=== PATIENT | male | born 1995 | race Caucasian/White ===

== ENCOUNTER 2018-06-23 15:37 | Emergency (ER) | payer BC ==
[2018-06-23] MEDS ORDERED: ALBUTEROL 2.5 MG/3 ML NEB SOL ONE (16:58)
[2018-06-23] MEDS ORDERED: IPRATROPIUM BROM 0.5MG/2.5ML ONE (16:58)
[2018-06-23] MEDS ORDERED: predniSONE 20 MG TAB ONE (16:58)
--- NOTE | 2018-06-23 17:15 | RAD REPORT ---
EXAM DESCRIPTION: RAD - Chest Pa And Lat (2 Views) - 06/23/2018 5:01 pm CLINICAL HISTORY: Cough;Congestion Chest pain. COMPARISON: Chest Pa And Lat (2 Views) dated 07/14/2017; Chest Pa And Lat (2 Views) dated 11/28/2016; C HEST PA AND LAT 2 VIEW dated 11/19/2015; CHEST SINGLE VIEW dated 04/25/2014 FINDINGS: The lungs are clear. The heart is normal in size. No displaced fractures. IMPRESSION: No acute or concerning finding suspected.
--- NOTE | 2018-06-23 18:20 | EDPHYS ---
Physician Documentation [facility] Name: Julius Barkley Age: 23 yrs Sex: Male : 1995 Arrival Date: 06/23/2018 Time: 15:40 Bed 15 Private MD: Vini Tomlinson E ED Physician Adam Fernandes HPI: 06/23 16:31 This 23 yrs old Male presents to ER via Ambulatory with complaints of Cough pm1 and Congestion. 16:31 The patient or guardian reports cough, with productive sputum, that is green. Onset: pm1 The symptoms/episode began/occurred 4 day(s) ago. Severity of symptoms: in the emergency department the symptoms are actually worse. Modifying factors: The symptoms are alleviated by nothing, the symptoms are aggravated by nothing. Associated signs and symptoms: Pertinent positives: earache, sore throat, Pertinent negatives: chest pain, diarrhea, fever, nausea, rhinorrhea, vomiting. The patient has experienced similar episodes in the past, a few times, and the symptoms today are exactly the same, to when the patient was apparently diagnosed with bronchitis. Usually gets it once every other year. The patient has not recently seen a physician. Historical: - Allergies: 15:54 Codeine; aj1 - Home Meds: 15:54 None [Active]; aj1 - PMHx: 15:54 ALOPECIA; dermatitis; GERD; aj1 - PSHx: 15:54 Appendectomy; aj1 - Immunization history:: Flu vaccine is not up to date. - Social history:: Smoking status: Patient uses tobacco products, a couple every weekend. - Ebola Screening: : Patient denies travel to an Ebola-affected area in the 21 days before illness onset. ROS: 16:31 Constitutional: Negative for fever, chills, and weight loss, Eyes: Negative for injury, pm1 pain, redness, and discharge, ENT: Negative for injury, pain, and discharge, Neck: Negative for injury, pain, and swelling, Cardiovascular: Negative for chest pain, palpitations, and edema, Abdomen/GI: Negative for abdominal pain, nausea, vomiting, diarrhea, and constipation, Back: Negative for injury and pain, : Negative for injury, bleeding, discharge, and swelling, MS/Extremity: Negative for injury and deformity, Skin: Negative for injury, rash, and discoloration. 16:31 Neuro: Negative for headache, weakness, numbness, tingling, and seizure. 16:31 Respiratory: Positive for cough, with green sputum, shortness of breath, Negative for wheezing. Exam: 16:31 Constitutional: This is a well developed, well nourished patient who is awake, alert, pm1 and in no acute distress. Head/Face: Normocephalic, atraumatic. Eyes: Pupils equal round and reactive to light, extra-ocular motions intact. Lids and lashes normal. Conjunctiva and sclera are non-icteric and not injected. Cornea within normal limits. Periorbital areas with no swelling, redness, or edema. ENT: Nares patent. No nasal discharge, no septal abnormalities noted. Tympanic membranes are normal and external auditory canals are clear. Oropharynx with no redness, swelling, or masses, exudates, or evidence of obstruction, uvula midline. Mucous membranes moist. Neck: Trachea midline, no thyromegaly or masses palpated, and no cervical lymphadenopathy. Supple, full range of motion without nuchal rigidity, or vertebral point tenderness. No Meningismus. Chest/axilla: Normal chest wall appearance and motion. Nontender with no deformity. No lesions are appreciated. Cardiovascular: Regular rate and rhythm with a normal S1 and S2. No gallops, murmurs, or rubs. Normal PMI, no JVD. No pulse deficits. Respiratory: Lungs have equal breath sounds bilaterally, clear to auscultation and percussion. No rales, rhonchi or wheezes noted. No increased work of breathing, no retractions or nasal flaring. Abdomen/GI: Soft, non-tender, with normal bowel sounds. No distension or tympany. No guarding or rebound. No evidence of tenderness throughout. Back: No spinal tenderness. No costovertebral tenderness. Full range of motion. Skin: Warm, dry with normal turgor. Normal color with no rashes, no lesions, and no evidence of cellulitis. MS/ Extremity: Pulses equal, no cyanosis. Neurovascular intact. Full, normal range of motion. 16:31 Neuro: Orientation: is normal, Motor: is normal, moves all fours, Sensation: is normal, no obvious gross deficits, Gait: is steady, at a normal pace, without difficulty. Vital Signs: 15:54 BP 129 / 88; Pulse 97; Resp 18; Temp 98.4; Pulse Ox 95% on R/A; Weight 99.79 kg (R); aj1 Height 5 ft. 10 in. (177.80 cm) (R); Pain 9/10; 18:22 BP 133 / 77; Pulse 108; Resp 17; Pulse Ox 100% on R/A; kr2 15:54 Body Mass Index 31.57 (99.79 kg, 177.80 cm) aj1 MDM: 16:21 Patient medically screened. pm1 16:35 Data reviewed: vital signs. Data interpreted: Pulse oximetry: on room air is 95 %. pm1 Interpretation: normal. 18:18 Counseling: I had a detailed discussion with the patient and/or guardian regarding: the pm1 historical points, exam findings, and any diagnostic results supporting the discharge/admit diagnosis, lab results, radiology results, the need for outpatient follow up, to return to the emergency department if symptoms worsen or persist or if there are any questions or concerns that arise at home. 06/23 16:29 Order name: Flu; Complete Time: 17:42 pm1 06/23 16:29 Order name: Strep; Complete Time: 18:17 pm1 06/23 16:29 Order name: Chest Pa And Lat (2 Views) XRAY; Complete Time: 17:30 pm1 06/23 17:43 Order name: Throat Culture EDMS Administered Medications: 17:18 Drug: predniSONE 60 mg Route: PO; kr2 18:29 Follow up: Response: No adverse reaction kr2 17:18 Drug: Albuterol - atroVENT (3:1) (2.5 mg - 0.5 mg) 3 ml Route: Nebulizer; kr2 18:29 Follow up: Response: No adverse reaction kr2 Disposition: 18:39 Co-signature as Attending Physician, Adam Fernandes MD. rn Disposition: 06/23/18 18:19 Discharged to Home. Impression: Bronchitis, not specified as acute or chronic. - Condition is Stable. - Discharge Instructions: Acute Bronchitis, Adult, How to Use an Inhaler, Cough, Adult. - Prescriptions for Tessalon Perles 100 mg Oral Capsule - take 1 capsule by ORAL route every 8 hours As needed; 15 capsule. Medrol (Klaus) 4 mg Oral Tablets, Dose Pack - take 1 tablet by ORAL route as directed - follow package instructions; 1 packet. Albuterol Sulfate 90 mcg/actuation - inhale 1-2 puff by INHALATION route every 4-6 hours; 1 Inhaler. - Medication Reconciliation Form, Thank You Letter, Antibiotic Education form. - Follow up: Emergency Department; When: As needed; Reason: Worsening of condition. Follow up: Vini Tomlinson MD; When: 2 - 3 days; Reason: Recheck today's complaints, Continuance of care, Re-evaluation by your physician. - Problem is new. - Symptoms have improved. Signatures: Dispatcher [employer] EDMS Kathya Britt RN RN aj1 Adam Fernandes MD MD rn Marinas, Patrick, NATIONAL ACCOUNT EXECUTIVE NATIONAL ACCOUNT EXECUTIVE pm1 Alia Napier RN RN kr2 Corrections: (The following items were deleted from the chart) 18:31 18:19 06/23/2018 18:19 Discharged to Home. Impression: Bronchitis, not specified as kr2 acute or chronic. Condition is Stable. Forms are Medication Reconciliation Form, Thank You Letter, Antibiotic Education, Prescription Opioid Use. Follow up: Emergency Department; When: As needed; Reason: Worsening of condition. Follow up: Vini Tomlinson; When: 2 - 3 days; Reason: Recheck today's complaints, Continuance of care, Re-evaluation by your physician. Problem is new. Symptoms have improved. pm1
--- NOTE | 2018-06-23 18:20 | ER ---
Nurse's Notes [facility] Name: Julius Barkley Age: 23 yrs Sex: Male : 1995 Arrival Date: 06/23/2018 Time: 15:40 Bed 15 Private MD: Vini Tomlinson E Diagnosis: Bronchitis, not specified as acute or chronic Presentation: 06/23 15:51 Presenting complaint: Patient states: Cough, congestion, shortness of breath, and light aj1 headedness for the past 4 days, but the shortness of breath got worse last night and has not improved over the course of the day. Denies fever. Transition of care: patient was not received from another setting of care. Onset of symptoms was June 19, 2018. Risk Assessment: Do you want to hurt yourself or someone else? Patient reports no desire to harm self or others. Initial Sepsis Screen: Does the patient meet any 2 criteria? Systolic BP < 90 mmHg. No. Patient's initial sepsis screen is negative. Does the patient have a suspected source of infection? No. Patient's initial sepsis screen is negative. Care prior to arrival: None. 15:51 Method Of Arrival: Ambulatory aj1 15:57 Acuity: JANIS 4 aj1 Triage Assessment: 15:54 General: Appears in no apparent distress. uncomfortable, Behavior is calm, cooperative, aj1 appropriate for age. Pain: Complains of pain in face Pain currently is 9 out of 10 on a pain scale. Aggravated by coughing. EENT: Reports nasal congestion nasal discharge. Neuro: Level of Consciousness is awake, alert, obeys commands. Cardiovascular: Patient's skin is warm and dry. Respiratory: Reports cough that is persistent Airway is patent Respiratory effort is even, unlabored, Respiratory pattern is regular, symmetrical. GI: Reports vomiting, Patient currently denies diarrhea. Historical: - Allergies: 15:54 Codeine; aj1 - Home Meds: 15:54 None [Active]; aj1 - PMHx: 15:54 ALOPECIA; dermatitis; GERD; aj1 - PSHx: 15:54 Appendectomy; aj1 - Immunization history:: Flu vaccine is not up to date. - Social history:: Smoking status: Patient uses tobacco products, a couple every weekend. - Ebola Screening: : Patient denies travel to an Ebola-affected area in the 21 days before illness onset. Screenin:30 Abuse screen: Denies threats or abuse. Denies injuries from another. Nutritional kr2 screening: No deficits noted. Tuberculosis screening: No symptoms or risk factors identified. Fall Risk None identified. Assessment: 16:30 General: Appears in no apparent distress. comfortable, well groomed, well developed, kr2 well nourished, Behavior is calm, cooperative, appropriate for age. Pain: Denies pain. Neuro: Level of Consciousness is awake, alert, obeys commands, Oriented to person, place, time, situation, Appropriate for age. Cardiovascular: Capillary refill < 3 seconds in bilateral fingers Patient's skin is warm and dry. Respiratory: Reports cough that is productive, Airway is patent Respiratory effort is even, unlabored, Respiratory pattern is regular, symmetrical, Breath sounds are clear bilaterally. GI: Abdomen is flat, non-distended, Patient currently denies nausea, vomiting. EENT: Nares with drainage noted bilaterally Oral mucosa is moist. Throat is reddened Reports nasal congestion since yesterday nasal discharge that is watery since yesterday. Derm: Skin is intact, is healthy with good turgor, Skin is pink, warm \T\ dry. Musculoskeletal: Circulation, motion, and sensation intact. 17:30 Reassessment: Patient appears in no apparent distress at this time. Patient and/or kr2 family updated on plan of care and expected duration. Pain level reassessed. Patient is alert, oriented x 3, equal unlabored respirations, skin warm/dry/pink. 18:22 Reassessment: Patient appears in no apparent distress at this time. Patient and/or kr2 family updated on plan of care and expected duration. Pain level reassessed. Patient is alert, oriented x 3, equal unlabored respirations, skin warm/dry/pink. Vital Signs: 15:54 BP 129 / 88; Pulse 97; Resp 18; Temp 98.4; Pulse Ox 95% on R/A; Weight 99.79 kg (R); aj1 Height 5 ft. 10 in. (177.80 cm) (R); Pain 9/10; 18:22 BP 133 / 77; Pulse 108; Resp 17; Pulse Ox 100% on R/A; kr2 15:54 Body Mass Index 31.57 (99.79 kg, 177.80 cm) aj1 ED Course: 15:40 Patient arrived in ED. sb2 15:40 Tomlinson, Vini, MD is Private Physician. sb2 15:54 Arm band placed on Patient placed in waiting room, Patient notified of wait time. aj1 15:57 Triage completed. aj1 16:20 Alonso Carlos NP is PHCP. pm1 16:20 Adam Fernandes MD is Attending Physician. pm1 16:30 Patient has correct armband on for positive identification. Bed in low position. Call kr2 light in reach. Side rails up X 1. Adult w/ patient. Pulse ox on. NIBP on. Door closed. Head of bed elevated. 16:40 Alia Napier, RN is Primary Nurse. kr2 16:57 Chest Pa And Lat (2 Views) XRAY In Process Unspecified. EDMS 18:18 Vini Tomlinson MD is Referral Physician. pm1 18:30 No provider procedures requiring assistance completed. Patient did not have IV access kr2 during this emergency room visit. Administered Medications: 17:18 Drug: predniSONE 60 mg Route: PO; kr2 18:29 Follow up: Response: No adverse reaction kr2 17:18 Drug: Albuterol - atroVENT (3:1) (2.5 mg - 0.5 mg) 3 ml Route: Nebulizer; kr2 18:29 Follow up: Response: No adverse reaction kr2 Outcome: 18:19 Discharge ordered by . pm1 18:30 Discharged to home ambulatory, with family. kr2 18:30 Condition: good 18:30 Discharge instructions given to patient, Instructed on discharge instructions, follow up and referral plans. medication usage, Demonstrated understanding of instructions, follow-up care, medications, Prescriptions given X 3. 18:31 Patient left the ED. kr2 Signatures: Dispatcher [employer] EDMS Kathya Britt RN RN aj1 Alonso Carlos, DIEUDONNE ORDNANCE ENGINEERING TECHNICIAN pm1 Alia Napier, MARY RN kr2 Kat Tobin sb2 Corrections: (The following items were deleted from the chart) 18:30 18:22 BP 133 / 77; Pulse 128bpm; Resp 17bpm; Pulse Ox 100% RA; kr2 kr2
[2018-06-23 18:55] VITALS: TEMP 98.4
[2018-06-23 18:56] VITALS: BP 133/77; O2SAT 100
== END 2018-06-23 18:31 | disposition home or self-care (01) ==
LOC: ER 15:37
DX: J40 Bronchitis, not specified as acute or chronic (principal); Z88.5 Allergy status to narcotic agent; K21.9 Gastro-esophageal reflux disease without esophagitis; Z72.0 Tobacco use
CPT/HCPCS: 71046; 87070; 87081; 87804; 94640; 99284; J7512

== ENCOUNTER 2018-08-26 20:51 | Emergency (ER) | payer BC ==
[2018-08-26] MEDS ORDERED: IBUPROFEN 400 MG TAB ONE (21:21)
[2018-08-26] MEDS ORDERED: IBUPROFEN 200 MG TAB PO ONE (21:22)
--- NOTE | 2018-08-26 21:44 | RAD REPORT ---
EXAM DESCRIPTION: RAD - Foot Right 3 View - 08/26/2018 9:37 pm CLINICAL HISTORY: PAIN COMPARISON: OS CALCIS CALCANEUS dated 05/13/2015; Foot Right 3 View dated 09/03/2014 FINDINGS: Lucency is seen in the distal aspect of the proximal phalanx of the great toe with mild hawkins rrounding soft tissue swelling. This is compatible with fracture. No dislocation evident.
--- NOTE | 2018-08-26 21:45 | ER ---
Nurse's Notes [facility] Name: Julius Barkley Age: 23 yrs Sex: Male : 1995 Arrival Date: 08/26/2018 Time: 20:54 Bed 23 Private MD: Diagnosis: Nondisplaced fracture of proximal phalanx of right great toe Presentation: 08/26 21:00 Presenting complaint: Patient states: Pain to right great toe after kicking something aj intentionally 30 min [employer]. Mild swelling noted. Transition of care: patient was not received from another setting of care. Onset of symptoms was August 26, 2018. Risk Assessment: Do you want to hurt yourself or someone else? Patient reports no desire to harm self or others. Initial Sepsis Screen: Does the patient meet any 2 criteria? No. Patient's initial sepsis screen is negative. Does the patient have a suspected source of infection? No. Patient's initial sepsis screen is negative. Care prior to arrival: None. 21:00 Method Of Arrival: Wheelchair aj 21:00 Acuity: JANIS 4 aj Triage Assessment: 21:01 General: Appears in no apparent distress. comfortable, Behavior is calm, cooperative, aj appropriate for age. Pain: Complains of pain in right first toe. Neuro: Level of Consciousness is awake, alert, obeys commands, Oriented to person, place, time, situation, Appropriate for age. Respiratory: Airway is patent Respiratory effort is even, unlabored, Respiratory pattern is regular, symmetrical. Derm: Skin is intact, is healthy with good turgor, Skin is pink, warm \T\ dry. normal. Musculoskeletal: Reports pain in right first toe. Historical: - Allergies: 21: Codeine; aj - Home Meds: 21: None [Active]; aj - PMHx: 21: ALOPECIA; dermatitis; GERD; aj - PSHx: 21:01 Appendectomy; aj - Immunization history:: Adult Immunizations up to date. - Social history:: Smoking status: Patient uses tobacco products, smokes one-half pack cigarettes per day. - Ebola Screening: : Patient negative for fever greater than or equal to 101.5 degrees Fahrenheit, and additional compatible Ebola Virus Disease symptoms Patient denies exposure to infectious person Patient denies travel to an Ebola-affected area in the 21 days before illness onset No symptoms or risks identified at this time. Screenin:10 Abuse screen: Denies threats or abuse. Nutritional screening: No deficits noted. tl3 Tuberculosis screening: No symptoms or risk factors identified. Fall Risk None identified. Assessment: 21:10 General: Appears in no apparent distress. uncomfortable, well groomed, well developed, tl3 well nourished, Behavior is calm, cooperative, appropriate for age. Pain: Complains of pain in right first toe. Neuro: Level of Consciousness is awake, alert, obeys commands, Oriented to person, place, time, situation, Appropriate for age. Cardiovascular: Patient's skin is warm and dry. Respiratory: Airway is patent Respiratory effort is even, unlabored, Respiratory pattern is regular, symmetrical. GI: No deficits noted. No signs and/or symptoms were reported involving the gastrointestinal system. : No deficits noted. No signs and/or symptoms were reported regarding the genitourinary system. EENT: No deficits noted. No signs and/or symptoms were reported regarding the EENT system. Derm: No deficits noted. No signs and/or symptoms reported regarding the dermatologic system. Musculoskeletal: Reports pain in right foot since kicked a container with books injuring great toe, able to move it, cap refill less than 2 seconds. Vital Signs: 21:01 BP 136 / 90; Pulse 51; Resp 18; Temp 98.9; Pulse Ox 99% on R/A; Weight 106.59 kg; aj Height 5 ft. 10 in. (177.80 cm); 22:15 BP 125 / 85; Pulse 53; Resp 18; Pulse Ox 99% on R/A; tl3 21:01 Body Mass Index 33.72 (106.59 kg, 177.80 cm) ED Course: 20:54 Patient arrived in ED. ds1 21:01 Triage completed. aj 21:01 Arm band placed on right wrist. Patient placed in an exam room. 21:04 Raul Cool PA is PHCP. [facility] 21:04 Salazar Miller MD is Attending Physician. [facility] 21:06 Sue Garcia, MARY is Primary Nurse. tl3 21:10 Patient has correct armband on for positive identification. Bed in low position. Adult tl3 w/ patient. 21:10 No provider procedures requiring assistance completed. Patient did not have IV access tl3 during this emergency room visit. 21:37 Foot Right 3 View XRAY In Process Unspecified. EDMS 21:44 Roberto Nance MD is Referral Physician. sweta 22:14 Crutch training done. Stan tape right first toe Ortho shoe applied to right foot. tl3 Administered Medications: 21:14 Drug: Ibuprofen 600 mg Route: PO; tl3 22:16 Follow up: Response: No adverse reaction; Pain is decreased tl3 Outcome: 21:45 Discharge ordered by . sweta 22:14 Discharged to home tl3 22:14 Discharged to home ambulatory, with crutches. 22:14 Condition: good 22:14 Discharge instructions given to patient, family, Instructed on discharge instructions, follow up and referral plans. medication usage, crutch walking, Demonstrated understanding of instructions, follow-up care, medications, crutch walking, Prescriptions given X 1. 22:17 Patient left the ED. tl3 Signatures: Dispatcher [employer] EDMS Bernadine Ashraf, RN Raul Randhawa PA PA Joyce Dill ds1 Sue Garcia, MARY RN tl3
--- NOTE | 2018-08-26 21:45 | EDPHYS ---
Physician Documentation [facility] Name: Julius Barkley Age: 23 yrs Sex: Male : 1995 Arrival Date: 08/26/2018 Time: 20:54 Bed 23 Private MD: ED Physician Salazar Miller HPI: 08/26 21:06 This 23 yrs old Male presents to ER via Wheelchair with complaints of Toe jmm Injury. 21:06 The patient presents with an injury, pain, that is acute. The complaints affect the jmm right first toe. Onset: The symptoms/episode began/occurred acutely, just prior to arrival. Modifying factors: The symptoms are alleviated by nothing, the symptoms are aggravated by movement. Associated signs and symptoms: Pertinent negatives: numbness, swelling. This is a 23 year old male with a history of alopecia that presents to the ED with right great toe pain after kicking a trash bin. Denies other injury. . Historical: - Allergies: 21:01 Codeine; aj - Home Meds: 21:01 None [Active]; aj - PMHx: 21:01 ALOPECIA; dermatitis; GERD; aj - PSHx: 21:01 Appendectomy; aj - Immunization history:: Adult Immunizations up to date. - Social history:: Smoking status: Patient uses tobacco products, smokes one-half pack cigarettes per day. - Ebola Screening: : Patient negative for fever greater than or equal to 101.5 degrees Fahrenheit, and additional compatible Ebola Virus Disease symptoms Patient denies exposure to infectious person Patient denies travel to an Ebola-affected area in the 21 days before illness onset No symptoms or risks identified at this time. ROS: 21:06 Constitutional: Negative for fever, chills, and weight loss. jmm 21:06 MS/extremity: Positive for injury or acute deformity. 21:06 All other systems are negative. Exam: 21:06 Head/Face: atraumatic. Eyes: EOMI, no conjunctival erythema appreciated ENT: Moist jmm Mucus Membranes Neck: Trachea midline, Supple Chest/axilla: Normal chest wall appearance and motion. Cardiovascular: Regular rate and rhythm. No edema appreciated Respiratory: Normal respirations, no respiratory distress appreciated Abdomen/GI: Non distended, soft Back: Normal ROM Skin: General appearance color normal 21:06 Constitutional: The patient appears in no acute distress, alert, awake. 21:06 Musculoskeletal/extremity: right great toe TTP at IP joint, < 2 sec cap refill, compartmenest are soft, NVI. 21:06 Skin: Appearance: Color: normal in color. 21:06 Neuro: Orientation: is normal, Mentation: is normal, Memory: is normal. 21:06 Psych: Behavior/mood is pleasant, cooperative. Vital Signs: 21:01 BP 136 / 90; Pulse 51; Resp 18; Temp 98.9; Pulse Ox 99% on R/A; Weight 106.59 kg; aj Height 5 ft. 10 in. (177.80 cm); 22:15 BP 125 / 85; Pulse 53; Resp 18; Pulse Ox 99% on R/A; tl3 21:01 Body Mass Index 33.72 (106.59 kg, 177.80 cm) MDM: 21:06 Patient medically screened. [facility] 21:36 Data reviewed: vital signs, nurses notes. Counseling: I had a detailed discussion with [facility] the patient and/or guardian regarding: the historical points, exam findings, and any diagnostic results supporting the discharge/admit diagnosis, radiology results, the need for outpatient follow up, to return to the emergency department if symptoms worsen or persist or if there are any questions or concerns that arise at home. 21:42 Data reviewed: radiologic studies, plain films. [facility] 08/26 21:08 Order name: Foot Right 3 View XRAY; Complete Time: 21:45 [facility] 08/26 21:35 Order name: Splint; Complete Time: 21:45 [facility] 08/26 21:36 Order name: Ortho shoe; Complete Time: 21:45 [facility] 08/26 21:36 Order name: Crutches; Complete Time: 21:45 [facility] Administered Medications: 21: Drug: Ibuprofen 600 mg Route: PO; tl3 22:16 Follow up: Response: No adverse reaction; Pain is decreased tl3 Disposition: 08/26/18 21:45 Discharged to Home. Impression: Nondisplaced fracture of proximal phalanx of right great toe. - Condition is Stable. - Discharge Instructions: Toe Fracture. - Prescriptions for Ibuprofen 800 mg Oral Tablet - take 1 tablet by ORAL route every 12 hours As needed take with food; 20 tablet. - Medication Reconciliation Form, Thank You Letter, Antibiotic Education, Prescription Opioid Use form. - Follow up: Roberto Nance MD; When: 2 - 3 days; Reason: Recheck today's complaints, Continuance of care, Re-evaluation by your physician. Addendum: 08/27/2018 23:38 Co-signature as Attending Physician, Salazar Miller MD. g s Signatures: Dispatcher [employer] EDMS Bernadine Ashraf, RN RN Raul Post PA PA [facility] Salazar Miller MD MD Sue Garcia RN RN tl3 Corrections: (The following items were deleted from the chart) 08/26 21:12 21:06 Foot Left 3 View+RAD.RAD.BRZ ordered. [facility] 22:17 21:45 08/26/2018 21:45 Discharged to Home. Impression: Nondisplaced fracture of tl3 proximal phalanx of right great toe. Condition is Stable. Forms are Medication Reconciliation Form, Thank You Letter, Antibiotic Education, Prescription Opioid Use. Follow up: Roberto Nance; When: 2 - 3 days; Reason: Recheck today's complaints, Continuance of care, Re-evaluation by your physician. sweta
[2018-08-28 14:09] VITALS: BP 125/85; TEMP 98.9; O2SAT 99
== END 2018-08-26 22:17 | disposition home or self-care (01) ==
LOC: ER 20:51
DX: S92.414A Nondisplaced fracture of proximal phalanx of right great toe, initial encounter for closed fracture (principal); W22.09XA Striking against other stationary object, initial encounter; Y93.9 Activity, unspecified; Y92.9 Unspecified place or not applicable; Z88.5 Allergy status to narcotic agent; F17.210 Nicotine dependence, cigarettes, uncomplicated
CPT/HCPCS: 99284

== ENCOUNTER 2018-11-25 17:29 | Emergency (ER) | payer BC ==
[2012-07-09 07:45] VITALS: BP 123/65
--- NOTE | 2018-11-25 18:52 | RAD REPORT ---
EXAM DESCRIPTION: RAD - Chest Pa And Lat (2 Views) - 11/25/2018 6:12 pm CLINICAL HISTORY: COUGH Chest pain. COMPARISON: Chest Pa And Lat (2 Views) dated 06/23/2018; Chest Pa And Lat (2 Views) dated 07/14/2017; C hest Pa And Lat (2 Views) dated 11/28/2016; CHEST PA AND LAT 2 VIEW dated 11/19/2015 FINDINGS: The lungs are clear. The heart is normal in size. No displaced fractures. IMPRESSION: No acute or concerning finding suspected.
--- NOTE | 2018-11-25 20:00 | EDPHYS ---
Physician Documentation [facility] Name: Julius Barkley Age: 23 yrs Sex: Male : 1995 Arrival Date: 11/25/2018 Time: 17:33 Bed 13 Private MD: ED Physician Salazar Miller HPI: 11/25 20:32 This 23 yrs old Male presents to ER via Ambulatory with complaints of Cough, snw Congestion. 20:32 The patient or guardian reports cough, described as moderate. Onset: The snw symptoms/episode began/occurred suddenly, 3 day(s) ago, and became persistent. Severity of symptoms: At their worst the symptoms were moderate. Associated signs and symptoms: Pertinent positives: rhinorrhea, Pertinent negatives: ear ache, sore throat, vomiting. It is unknown whether or not the patient has had similar symptoms in the past. It is unknown whether or not the patient has recently seen a physician. Historical: - Allergies: 17:36 Codeine; aj1 - Home Meds: 17:36 None [Active]; aj1 - PMHx: 17:36 ALOPECIA; dermatitis; GERD; aj1 - PSHx: 17:36 Appendectomy; aj1 - Immunization history:: Flu vaccine is not up to date. - Social history:: Smoking status: Patient uses tobacco products, denies chronic smoking, but will smoke occasionally. - Ebola Screening: : Patient denies travel to an Ebola-affected area in the 21 days before illness onset. ROS: 20:31 Constitutional: Negative for fever, chills, and weight loss, Eyes: Negative for injury, snw pain, redness, and discharge, Neck: Negative for injury, pain, and swelling, Cardiovascular: Negative for chest pain, palpitations, and edema, Abdomen/GI: Negative for abdominal pain, nausea, vomiting, diarrhea, and constipation, Back: Negative for injury and pain, : Negative for injury, bleeding, discharge, and swelling, MS/Extremity: Negative for injury and deformity, Skin: Negative for injury, rash, and discoloration, Neuro: Negative for headache, weakness, numbness, tingling, and seizure. 20:31 ENT: Positive for sinus congestion. 20:31 Respiratory: Positive for cough. Exam: 20:29 Constitutional: This is a well developed, well nourished patient who is awake, alert, snw and in no acute distress. Head/Face: Normocephalic, atraumatic. Eyes: Pupils equal round and reactive to light, extra-ocular motions intact. Lids and lashes normal. Conjunctiva and sclera are non-icteric and not injected. Cornea within normal limits. Periorbital areas with no swelling, redness, or edema. Neck: Trachea midline, no thyromegaly or masses palpated, and no cervical lymphadenopathy. Supple, full range of motion without nuchal rigidity, or vertebral point tenderness. No Meningismus. Chest/axilla: Normal chest wall appearance and motion. Nontender with no deformity. No lesions are appreciated. Cardiovascular: Regular rate and rhythm with a normal S1 and S2. No gallops, murmurs, or rubs. Normal PMI, no JVD. No pulse deficits. Abdomen/GI: Soft, non-tender, with normal bowel sounds. No distension or tympany. No guarding or rebound. No evidence of tenderness throughout. Back: No spinal tenderness. No costovertebral tenderness. Full range of motion. Skin: Warm, dry with normal turgor. Normal color with no rashes, no lesions, and no evidence of cellulitis. MS/ Extremity: Pulses equal, no cyanosis. Neurovascular intact. Full, normal range of motion. Neuro: Awake and alert, GCS 15, oriented to person, place, time, and situation. Cranial nerves II-XII grossly intact. Motor strength 5/5 in all extremities. Sensory grossly intact. Cerebellar exam normal. Normal gait. 20:29 ENT: External ear(s): are unremarkable, Ear canal(s): are normal, TM's: erythema, that is mild, that is moderate, on the left, Nose: Nasal mucosa: edematous, Mouth: is normal, Posterior pharynx: erythema, that is mild, Voice: is normal. 20:29 Respiratory: the patient does not display signs of respiratory distress, Respirations: normal, Breath sounds: are clear throughout, bronchitic cough. Vital Signs: 17:36 BP 124 / 77; Pulse 91; Resp 20; Temp 99.4; Pulse Ox 99% on R/A; Weight 99.79 kg (R); aj1 Height 5 ft. 11 in. (180.34 cm); Pain 5/10; 18:30 BP 116 / 71; Pulse 87; Resp 19; Pulse Ox 98% on R/A; rb1 20:10 BP 117 / 76; Pulse 90; Resp 18; Temp 98.9; Pulse Ox 100% on R/A; aa1 17:36 Body Mass Index 30.68 (99.79 kg, 180.34 cm) aj1 MDM: 18:41 Patient medically screened. snw 20:29 Data reviewed: vital signs, nurses notes. Data interpreted: Pulse oximetry: on room air snw is 100 %. Interpretation: normal. Counseling: I had a detailed discussion with the patient and/or guardian regarding: the historical points, exam findings, and any diagnostic results supporting the discharge/admit diagnosis, lab results, the need for outpatient follow up, to return to the emergency department if symptoms worsen or persist or if there are any questions or concerns that arise at home. Special discussion: Based on the history and exam findings, there is no indication for further emergent testing or inpatient evaluation. I discussed with the patient/guardian the need to see the primary care provider for further evaluation of the symptoms. 11/25 17:57 Order name: Flu; Complete Time: 19:56 la1 11/25 17:57 Order name: Strep; Complete Time: 19:56 la1 11/25 17:49 Order name: XRAY Chest Pa And Lat (2 Views); Complete Time: 19:02 aj Administered Medications: 20:15 Drug: Augmentin 875 mg Route: PO; aa1 20:16 Follow up: Response: Medication administered at discharge. aa1 20:15 Drug: Decadron 8 mg Route: PO; aa1 20:16 Follow up: Response: Medication administered at discharge. aa1 Disposition: 11/25/18 19:59 Discharged to Home. Impression: Streptococcal pharyngitis. - Condition is Stable. - Discharge Instructions: Fever, Adult, Strep Throat, Rehydration, Adult. - Prescriptions for Augmentin 875- 125 mg Oral Tablet - take 1 tablet by ORAL route every 12 hours for 10 days; 20 tablet. - Medication Reconciliation Form, Thank You Letter, Antibiotic Education, Prescription Opioid Use form. - Follow up: Private Physician; When: 2 - 3 days; Reason: Recheck today's complaints, Continuance of care, Re-evaluation by your physician. Follow up: Emergency Department; When: As needed; Reason: Worsening of condition. Addendum: 11/30/2018 01:28 Co-signature as Attending Physician, Salazar Miller MD. g s Signatures: Dispatcher [employer] EDKathya Petty RN RN aj1 Ana Dial RN RN aa1 Dee Bermudez, ELECTRIC METER REPAIRER APPRENTICE-C ELECTRIC METER REPAIRER APPRENTICE-Csnw Salazar Miller MD MD gs Corrections: (The following items were deleted from the chart) 11/25 20:16 19:59 11/25/2018 19:59 Discharged to Home. Impression: Streptococcal pharyngitis. aa1 Condition is Stable. Forms are Medication Reconciliation Form, Thank You Letter, Antibiotic Education, Prescription Opioid Use. Follow up: Private Physician; When: 2 - 3 days; Reason: Recheck today's complaints, Continuance of care, Re-evaluation by your physician. Follow up: Emergency Department; When: As needed; Reason: Worsening of condition. snw
--- NOTE | 2018-11-25 20:00 | ER ---
Nurse's Notes [facility] Name: Julius Barkley Age: 23 yrs Sex: Male : 1995 Arrival Date: 11/25/2018 Time: 17:33 Bed 13 Private MD: Diagnosis: Streptococcal pharyngitis Presentation: 11/25 17:34 Presenting complaint: Patient states: Body aches, cough, chest pain, shortness of aj1 breath and headache since he woke up this morning. Transition of care: patient was not received from another setting of care. Onset of symptoms was November 25, 2018. Risk Assessment: Do you want to hurt yourself or someone else? Patient reports no desire to harm self or others. Initial Sepsis Screen: Does the patient meet any 2 criteria? HR > 90 bpm. No. Patient's initial sepsis screen is negative. Does the patient have a suspected source of infection? Yes: Productive cough/pneumonia. Care prior to arrival: None. 17:34 Method Of Arrival: Ambulatory aj 17:34 Acuity: JANIS 3 aj1 Triage Assessment: 17:36 General: Appears in no apparent distress. comfortable, Behavior is calm, cooperative, aj1 appropriate for age. Pain: Complains of pain in back Pain currently is 5 out of 10 on a pain scale. EENT: Reports nasal congestion nasal discharge. Neuro: Level of Consciousness is awake, alert, obeys commands. Cardiovascular: Patient's skin is warm and dry. Respiratory: Airway is patent Respiratory effort is even, unlabored, Respiratory pattern is regular, symmetrical. Historical: - Allergies: 17:36 Codeine; aj1 - Home Meds: 17:36 None [Active]; aj1 - PMHx: 17:36 ALOPECIA; dermatitis; GERD; aj1 - PSHx: 17:36 Appendectomy; aj1 - Immunization history:: Flu vaccine is not up to date. - Social history:: Smoking status: Patient uses tobacco products, denies chronic smoking, but will smoke occasionally. - Ebola Screening: : Patient denies travel to an Ebola-affected area in the 21 days before illness onset. Screenin:59 Abuse screen: Denies threats or abuse. Nutritional screening: No deficits noted. rb1 Tuberculosis screening: No symptoms or risk factors identified. Fall Risk None identified. Assessment: 17:59 General: Appears in no apparent distress. comfortable, Behavior is calm, cooperative, rb1 Reports fever for. Pain: Complains of pain in generalized bodyaches Pain currently is 4 out of 10 on a pain scale. Neuro: Level of Consciousness is awake, alert, obeys commands, Oriented to person, place, time, situation. Neuro: Reports dizziness. Cardiovascular: Capillary refill < 3 seconds is brisk in bilateral fingers. Respiratory: Reports shortness of breath cough that is Airway is patent Respiratory effort is even, unlabored, Respiratory pattern is regular, symmetrical, Breath sounds are clear bilaterally. Respiratory: Reports pain with cough. GI: Reports vomiting, last night. : No signs and/or symptoms were reported regarding the genitourinary system. Derm: Skin is pink, warm \T\ dry. Musculoskeletal: Range of motion: intact in all extremities. 20:10 Reassessment: Patient appears in no apparent distress at this time. Patient is alert, aa1 oriented x 3, equal unlabored respirations, skin warm/dry/pink. Discussed d/c \T\ f/u instructions with pt \T\ mother; denies questions or concerns at this time. Vital Signs: 17:36 BP 124 / 77; Pulse 91; Resp 20; Temp 99.4; Pulse Ox 99% on R/A; Weight 99.79 kg (R); aj1 Height 5 ft. 11 in. (180.34 cm); Pain 5/10; 18:30 BP 116 / 71; Pulse 87; Resp 19; Pulse Ox 98% on R/A; rb1 20:10 BP 117 / 76; Pulse 90; Resp 18; Temp 98.9; Pulse Ox 100% on R/A; aa1 17:36 Body Mass Index 30.68 (99.79 kg, 180.34 cm) aj1 ED Course: 17:33 Patient arrived in ED. aj1 17:36 Triage completed. aj1 17:36 Arm band placed on Patient placed in waiting room, Patient notified of wait time. aj1 17:59 Patient has correct armband on for positive identification. Bed in low position. Call rb1 light in reach. Side rails up X 1. satellite project site monitor on. Pulse ox on. NIBP on. 18:01 Caity Cedeno, MARY is Primary Nurse. rb1 18:01 Dee Bermudez FNP-C is PHCP. snw 18:01 Salazar Miller MD is Attending Physician. snw 18:07 XRAY Chest Pa And Lat (2 Views) In Process Unspecified. EDMS 18:55 Report given to MARY Perez. rb1 20:10 No provider procedures requiring assistance completed. Patient did not have IV access aa1 during this emergency room visit. Administered Medications: 20:15 Drug: Augmentin 875 mg Route: PO; aa1 20:16 Follow up: Response: Medication administered at discharge. aa1 20:15 Drug: Decadron 8 mg Route: PO; aa1 20:16 Follow up: Response: Medication administered at discharge. aa1 Outcome: 19:59 Discharge ordered by . snw 20:10 Discharged to home ambulatory, with family. aa1 20:10 Condition: good 20:10 Discharge instructions given to patient, family, Instructed on discharge instructions, follow up and referral plans. medication usage, Demonstrated understanding of instructions, follow-up care, medications, Prescriptions given X 1. 20:16 Patient left the ED. aa1 Signatures: Dispatcher [employer] Kathya Pham RN RN aj1 Ana Dial, RN RN aa1 Dee Bermudez, PHYSICIAN EXECUTIVE-C PHYSICIAN EXECUTIVE-Csnw Caity Cedeno, RN RN rb1 Corrections: (The following items were deleted from the chart) 17:38 17:36 BP 124 / 77; Pulse 91bpm; Resp 20bpm; Pulse Ox 99% RA; Temp 99.4F; Height 5 ft. aj1 11 in.; Pain 6/10; aj1
[2018-11-25] MEDS ORDERED: DEXAMETHASONE 4 MG TAB ONE (20:20)
[2018-11-25] MEDS ORDERED: AMOX/K CLAV 875 MG TAB ONE (20:20)
== END 2018-11-25 20:16 | disposition home or self-care (01) ==
LOC: ER 17:29
DX: J02.0 Streptococcal pharyngitis (principal); Z72.0 Tobacco use; Z88.5 Allergy status to narcotic agent
CPT/HCPCS: 71046; 87081; 87804; 99284

== ENCOUNTER 2021-08-13 19:25 | Emergency (ER) | payer BC ==
--- NOTE | 2021-08-13 21:42 | RAD REPORT ---
EXAM DESCRIPTION: RAD - Hand Right 3 View - 08/13/2021 9:23 pm CLINICAL HISTORY: ANIMAL BITE COMPARISON: <Comparisons> FINDINGS: Soft tissue swelling is seen affecting the right hand. No fracture or radiopaque foreign b brian is seen. No soft tissue gas evident.
[2021-08-13] MEDS ORDERED: IBUPROFEN 400 MG TAB ONE (21:47)
[2021-08-13] MEDS ORDERED: AMOX/K CLAV 875 MG TAB ONE (21:47)
[2021-08-13] MEDS ORDERED: TETANUS & DIPHTHERIA TOX,ADULT 0.5 ML VIAL ONE (21:48)
--- NOTE | 2021-08-13 21:52 | ER ---
Nurse's Notes [facility] Name: Julius Barkley Age: 26 yrs Sex: Male : 1995 Arrival Date: 08/13/2021 Time: 19:27 Bed DIS3 Private MD: Diagnosis: Puncture wound without foreign body of hand-right Presentation: 08/13 19:34 Chief complaint: Patient states: Cat bite to right hand. Coronavirus screen: Vaccine df1 status: Patient reports being unvaccinated. Client denies travel out of the [place] in the last 14 days. At this time, the client does not indicate any symptoms associated with coronavirus-19. The client reports previous COVID testing was negative. Ebola Screen: Patient negative for fever greater than or equal to 101.5 degrees Fahrenheit, and additional compatible Ebola Virus Disease symptoms. Initial Sepsis Screen: Does the patient meet any 2 criteria? No. Patient's initial sepsis screen is negative. Risk Assessment: Do you want to hurt yourself or someone else? Patient reports no desire to harm self or others. Onset of symptoms was August 13, 2021. 19:34 Method Of Arrival: Ambulatory df1 19:34 Acuity: JANIS 4 df1 19:39 Note Bit by stray cat at 1700 today. No bleeding noted. Small puncture wounds to right df1 hand. Triage Assessment: 19:38 Bite description: bite sustained to right hand. Bite description: by a cat, animal df1 information: vaccination(s) is unknown. General: Appears in no apparent distress. comfortable, Behavior is calm, cooperative. Pain: Complains of pain in right hand. Historical: - Allergies: 19:36 Codeine; df1 - Home Meds: 19:36 None [Active]; df1 - PMHx: 19:36 ALOPECIA; dermatitis; GERD; df1 - PSHx: 19:36 Appendectomy; df1 - Immunization history:: Last tetanus immunization: > 10 years ago. - Social history:: Smoking status: Patient reports the use of cigarette tobacco products, smokes one-half pack cigarettes per day, Patient/guardian denies using. Vital Signs: 19:34 Pulse 62; Resp 18; Temp 97.9(O); Pulse Ox 100% on R/A; Weight 106.59 kg; Height 5 ft. df1 10 in. (177.80 cm); Pain 5/10; 19:36 BP 120 / 71; df1 21:15 BP 120 / 71; Pulse 62; Resp 18; Temp 97.9; Pulse Ox 100% ; Weight 106.5 kg; wr 21:15 Body Mass Index 33.69 (106.50 kg, 177.80 cm) ED Course: 19:27 Patient arrived in ED. bp1 19:36 Triage completed. df1 20:58 Tong Boland PA is PHCP. cp 20:58 Hardy Bhatia MD is Attending Physician. cp 20:58 Patient Police [employer] notified of cat bite to Right hand .Right hand was cleaned wr and dressed. 21:11 Patient Event # 1 [id number] done by officer Yee Gonzalez. wr 21:22 XRAY Hand RIGHT 3 View In Process Unspecified. EDMS Administered Medications: 21:28 Drug: Augmentin (Amoxicillin-Clavulanate) 875 mg Route: PO; wr 21:28 Drug: Ibuprofen 800 mg Route: PO; wr 21:29 Drug: Tetanus-Diphtheria Toxoid Adult 0.5 ml {[employer] Officer: [employer]. Exp: wr 02/11/2023. Lot #: [id number]. } Route: IM; Site: left deltoid; Outcome: 21:51 Discharge ordered by . cp 21:59 Patient left the ED. Signatures: Dispatcher [employer] EDMS Tong Boland PA PA cp [place], Brittany bp1 Tyler Bernstein wr Vandana Jane df1
--- NOTE | 2021-08-13 21:52 | EDPHYS ---
Physician Documentation [facility] Name: Julius Barkley Age: 26 yrs Sex: Male : 1995 Arrival Date: 08/13/2021 Time: 19:27 Bed DIS3 Private MD: ED Physician Hardy Bhatia HPI: 08/13 21:05 This 26 yrs old Male presents to ER via Ambulatory with complaints of Cat cp Bite. 21:05 The patient was bitten on the dorsal side of right hand, by a cat, while trying to stop cp animals from fighting, outdoors. Onset: The symptoms/episode began/occurred today. Animal information: Patient/Caregiver unable to provide information related to the animal. Secondary to the bite the patient reports erythema, multiple puncture wounds, that are deep, swelling. Associated signs and symptoms: The patient has no apparent associated signs or symptoms. Patient reports he was bitten on back of right hand by cat after attempting to prevent fight between his pet dog and stray cat. Historical: - Allergies: 19:36 Codeine; df1 - Home Meds: 19:36 None [Active]; df1 - PMHx: 19:36 ALOPECIA; dermatitis; GERD; df1 - PSHx: 19:36 Appendectomy; df1 - Immunization history:: Last tetanus immunization: > 10 years ago. - Social history:: Smoking status: Patient reports the use of cigarette tobacco products, smokes one-half pack cigarettes per day, Patient/guardian denies using. ROS: 21:15 Skin: Positive for erythema, puncture, swelling, of the dorsum of right hand. cp 21:15 Constitutional: Negative for chills, fever. cp 21:15 Neuro: Negative for numbness, tingling, weakness. 21:15 All other systems are negative. Exam: 21:20 Constitutional: The patient appears in no acute distress, alert, awake, non-toxic, well cp developed, well nourished. 21:20 Head/Face: Normocephalic, atraumatic. cp 21:20 Cardiovascular: Rate: normal. 21:20 Respiratory: the patient does not display signs of respiratory distress, Respirations: normal. 21:20 Musculoskeletal/extremity: Extremities: noted in the right hand: Perfusion: the extremity is normally perfused throughout, Sensation intact. 21:20 Skin: injury, that can be described as without bleeding, mild swelling, puncture(s), that are deep, of the dorsal side of right hand. Vital Signs: 19:34 Pulse 62; Resp 18; Temp 97.9(O); Pulse Ox 100% on R/A; Weight 106.59 kg; Height 5 ft. df1 10 in. (177.80 cm); Pain 5/10; 19:36 BP 120 / 71; df1 21:15 BP 120 / 71; Pulse 62; Resp 18; Temp 97.9; Pulse Ox 100% ; Weight 106.5 kg; wr 21:15 Body Mass Index 33.69 (106.50 kg, 177.80 cm) wr MDM: 21:03 Patient medically screened. cp 21:50 Data reviewed: vital signs, nurses notes, radiologic studies, plain films. cp 21:50 Test interpretation: by ED physician or midlevel provider: plain radiologic studies. cp Counseling: I had a detailed discussion with the patient and/or guardian regarding: the historical points, exam findings, and any diagnostic results supporting the discharge/admit diagnosis, radiology results, to return to the emergency department if symptoms worsen or persist or if there are any questions or concerns that arise at home. Special discussion: I discussed in detail with the patient the higher chance of wound infection based on his presenting history. ED course: Wounds cleaned and irrigated. Local law enforcement notified and patient interviewed. Patient instructed on wound care and to return to ED worsening swelling, pain, and/or redness. 08/13 21:01 Order name: XRAY Hand RIGHT 3 View cp Administered Medications: 21:28 Drug: Augmentin (Amoxicillin-Clavulanate) 875 mg Route: PO; wr 21:28 Drug: Ibuprofen 800 mg Route: PO; wr 21:29 Drug: Tetanus-Diphtheria Toxoid Adult 0.5 ml {Dice Maker: [employer]. Exp: wr 02/11/2023. Lot #: [id number]. } Route: IM; Site: left deltoid; Disposition: 22:00 Chart complete. cp 08/14 21:36 Co-signature as Attending Physician, Hardy Bhatia MD. [email or web address] Disposition Summary: 08/13/21 21:51 Discharge Ordered Location: Home cp Problem: new cp Symptoms: have improved cp Condition: Stable cp Diagnosis - Puncture wound without foreign body of hand - right cp Followup: cp - With: Emergency Department - When: 48 Hours - Reason: Worsening of condition Discharge Instructions: - Discharge Summary Sheet cp - Puncture Wound cp - Animal Bite, Adult cp Forms: - Medication Reconciliation Form cp - Thank You Letter cp - Antibiotic Education cp - Prescription Opioid Use cp Prescriptions: - Augmentin 875-125 mg Oral Tablet - take 1 tablet by ORAL route every 12 hours for 10 days; 20 tablet; Refills: 0, cp Product Selection Permitted - Ibuprofen 800 mg Oral Tablet - take 1 tablet by ORAL route every 8 hours As needed take with food; 30 tablet; cp Refills: 0, Product Selection Permitted - Bactrim DS 800-160 mg Oral Tablet - take 1 tablet by ORAL route every 12 hours for 10 days; 20 tablet; Refills: 0, cp Product Selection Permitted Signatures: Dispatcher [employer] EDMS Tong Boland PA PA cp Hardy Bhatia MD MD mh7 Tyler Bernstein Dawn df1 Corrections: (The following items were deleted from the chart) 20:45 08/13 21:50 ED course: Wounds cleaned and irrigated. cp cp
[2021-08-13 22:12] VITALS: TEMP 97.9; O2SAT 100
[2021-08-13 22:13] VITALS: BP 120/71
== END 2021-08-13 21:59 | disposition home or self-care (01) ==
LOC: ER 19:25
DX: S61.431A Puncture wound without foreign body of right hand, initial encounter (principal); W55.01XA Bitten by cat, initial encounter; Y93.89 Activity, other specified; F17.210 Nicotine dependence, cigarettes, uncomplicated; Z23 Encounter for immunization; Z88.5 Allergy status to narcotic agent
CPT/HCPCS: 90471; 90714; 99283

== ENCOUNTER 2023-07-27 00:57 | Emergency (ER) | payer SELFPAY ==
--- OUTSIDE RECORDS SUMMARY | 2023-07-27 01:00 | XMS REPORT | Continuity of Care Document ---
:1995 Author Organization [facility] t Address [address] [facility] [address] [place] [id number] Care Team Providers Name Role Phone Unavailable Unavailable Unavailable Problems This patient has no known problems. Allergies, Adverse Reactions, Alerts This patient has no known allergies or adverse reactions. Medications This patient has no known medications. Procedures This patient has no known procedures. Encounters Start End Encounter Admission Attending Care Care Encounter Source Date/Time Date/Time Type Type Clinicians Facility Department ID 2022-03-14 Outpatient [facility] [id number] Common 10:26:04 [facility] 2022-02-08 Outpatient [facility] [id number] Common 09:52:03 [facility] Results This patient has no known results.
--- NOTE | 2023-07-27 01:16 | ER ---
Nurse's Notes [facility] Name: Julius Barkley Age: 28 yrs Sex: Male : 1995 Arrival Date: 07/27/2023 Time: 00:57 Bed Waiting Private MD: Diagnosis: Disorder of teeth and supporting structures, unspecified Presentation: 07/27 01:06 Chief complaint: Patient states: right sided jaw/tooth pain. Coronavirus screen: At as6 this time, the client does not indicate any symptoms associated with coronavirus-19. Ebola Screen: No symptoms or risks identified at this time. Initial Sepsis Screen: Does the patient meet any 2 criteria? No. Patient's initial sepsis screen is negative. Does the patient have a suspected source of infection? No. Patient's initial sepsis screen is negative. Risk Assessment: Do you want to hurt yourself or someone else? Patient reports no desire to harm self or others. Onset of symptoms was July 26, 2023. 01:06 Acuity: JANIS 4 as6 01:06 Method Of Arrival: Ambulatory as6 Triage Assessment: 01:04 General: Appears uncomfortable, Behavior is calm, cooperative. Pain: Complains of pain as6 in right jaw. EENT: Poor dentition noted. Dental caries noted in lower right second molar (#31). Historical: - Allergies: 01:06 Codeine; as6 - PMHx: 01:06 ALOPECIA; dermatitis; GERD; as6 - PSHx: 01:06 Appendectomy; as6 - Immunization history:: Client reports having NOT received the Covid vaccine. - Social history:: Smoking status: Patient denies any tobacco usage or history of. Screenin:35 [facility] ED Fall Risk Assessment (Adult) Score/Fall Risk Level 0 - 2 = Low Risk. Abuse as6 screen: Denies threats or abuse. Denies injuries from another. Nutritional screening: No deficits noted. Tuberculosis screening: No symptoms or risk factors identified. Vital Signs: 01:04 BP 118 / 76; Pulse 55; Resp 20; Temp 99; Pulse Ox 100% ; Weight 90.72 kg; Height 5 ft. as6 8 in. ; Pain 9/10; 01:04 Body Mass Index 30.41 (90.72 kg, 172.72 cm) as6 01:04 Pain Scale: Adult as6 ED Course: 01:00 Patient arrived in ED. mr 01:02 Tong Boland PA is PHCP. cp 01:02 Adam Fernandes MD is Attending Physician. cp 01:04 Arm band placed on. as6 01:07 Triage completed. as6 01:15 Aiden Byrd DDS is Referral Physician. cp 01:35 Orlando Fine, RN is Primary Nurse. as6 01:35 Bed in low position. Call light in reach. Provided Education on: abx teaching. as6 01:35 No provider procedures requiring assistance completed. Patient did not have IV access as6 during this emergency room visit. Administered Medications: 01:31 Drug: Amoxicillin-Clavulanate PO Chewable Tablet 800 mg Route: PO; as6 01:35 Follow up: Response: No adverse reaction as6 01:31 Drug: HYDROcodone-acetaminophen PO 5 mg-325 mg 1 tabs Route: PO; as6 01:35 Follow up: Response: No adverse reaction as6 01:31 Drug: Ibuprofen PO 800 mg Route: PO; as6 01:35 Follow up: Response: No adverse reaction as6 Medication: 01:36 VIS not applicable for this client. as6 Outcome: 01:15 Discharge ordered by MD. cp 01:35 Discharged to home ambulatory, with family. as6 01:35 Condition: stable 01:35 Discharge instructions given to patient, Instructed on discharge instructions, follow up and referral plans. medication usage, Demonstrated understanding of instructions, follow-up care, medications, Prescriptions given X 2. 01:37 Patient left the ED. as6 Signatures: Cecy Goodman mr Tong Boland PA PA cp Orlando Fine, RN RN as6
--- NOTE | 2023-07-27 01:16 | EDPHYS ---
Physician Documentation [facility] Name: Julius Barkley Age: 28 yrs Sex: Male : 1995 Arrival Date: 07/27/2023 Time: 00:57 Bed Waiting Private MD: ED Physician Adam Fernandes HPI: 07/27 01:08 This 28 yrs old Male presents to ER via Ambulatory with complaints of Toothache. cp 01:08 The patient presents with pain. The problem is located in the right lower jaw. Onset: cp The symptoms/episode began/occurred yesterday. Duration: The symptoms are continuous, and are steadily getting worse. Associated signs and symptoms: Pertinent negatives: fever, swelling, facial, vomiting. Severity of symptoms: in the emergency department the symptoms are unchanged, despite home interventions. Historical: - Allergies: 01:06 Codeine; as6 - PMHx: 01:06 ALOPECIA; dermatitis; GERD; as6 - PSHx: 01:06 Appendectomy; as6 - Immunization history:: Client reports having NOT received the Covid vaccine. - Social history:: Smoking status: Patient denies any tobacco usage or history of. ROS: 01:10 Eyes: Negative for injury, pain, redness, and discharge. cp 01:10 Constitutional: Negative for body aches, chills, fever, poor PO intake. 01:10 ENT: Positive for dental pain. 01:10 Respiratory: Negative for cough, shortness of breath, wheezing. 01:10 Abdomen/GI: Negative for abdominal pain, vomiting, diarrhea, constipation. 01:10 Skin: Negative for rash. 01:10 Neuro: Negative for altered mental status, dizziness, headache, weakness. 01:10 All other systems are negative. Exam: 01:11 Head/Face: Normocephalic, atraumatic. cp 01:11 Constitutional: The patient appears in no acute distress, alert, awake, non-toxic, well developed, well nourished. 01:11 Eyes: Periorbital structures: appear normal, Conjunctiva: normal, no exudate, no injection, Sclera: no appreciated abnormality, Lids and lashes: appear normal, bilaterally. 01:11 ENT: External ear(s): are unremarkable, Nose: is normal, Mouth: Lips: moist, Oral mucosa: pink and intact, moist, Posterior pharynx: is normal, airway is patent, no erythema, no exudate, Dental exam: abscess, is not appreciated, dental caries, that is moderate, diffusely, gum swelling, not appreciated, pain, that is moderate, specifically in the lower right third molar (#32), Voice: is normal. 01:11 Neck: ROM/movement: is normal, is supple, without pain, no range of motions limitations, no meningismus, Lymph nodes: no appreciated lymphadenopathy. 01:11 Chest/axilla: Inspection: normal. 01:11 Cardiovascular: Rate: bradycardic, Rhythm: regular. 01:11 Respiratory: the patient does not display signs of respiratory distress, Respirations: normal, no use of accessory muscles, no retractions, labored breathing, is not present, Breath sounds: are clear throughout, no decreased breath sounds, no stridor, no wheezing. 01:11 Abdomen/GI: Exam negative for discomfort, distension, guarding, Inspection: abdomen appears normal. 01:11 Skin: cellulitis, is not appreciated, no rash present. Vital Signs: 01:04 BP 118 / 76; Pulse 55; Resp 20; Temp 99; Pulse Ox 100% ; Weight 90.72 kg; Height 5 ft. as6 8 in. ; Pain 9/10; 01:04 Body Mass Index 30.41 (90.72 kg, 172.72 cm) as6 01:04 Pain Scale: Adult as6 MDM: 01:14 Differential diagnosis: dental caries, dental abscess, pericoronitis, acute necrotizing cp ulcerative gingivitis, gingivostomatitis. Data reviewed: vital signs, nurses notes, and as a result, I will discharge patient. I considered the following discharge prescriptions or medication management in the emergency department Medications were administered in the Emergency Department. See JAN. 01:15 Patient medically screened. cp Administered Medications: 01:31 Drug: Amoxicillin-Clavulanate PO Chewable Tablet 800 mg Route: PO; as6 01:35 Follow up: Response: No adverse reaction as6 01:31 Drug: HYDROcodone-acetaminophen PO 5 mg-325 mg 1 tabs Route: PO; as6 01:35 Follow up: Response: No adverse reaction as6 01:31 Drug: Ibuprofen PO 800 mg Route: PO; as6 01:35 Follow up: Response: No adverse reaction as6 Disposition: 01:40 Co-signature as Attending Physician, Adam Fernandes MD I reviewed the patient's care rn provided by the Advanced Practice Provider and agree with the diagnosis and treatment plan. Disposition Summary: 07/27/23 01:15 Discharge Ordered Location: Home cp Problem: new cp Symptoms: have improved cp Condition: Stable cp Diagnosis - Disorder of teeth and supporting structures, unspecified cp Followup: cp - With: Aiden Byrd DDS - When: 2 - 3 days - Reason: Recheck today's complaints Discharge Instructions: - Discharge Summary Sheet cp - Dental Pain cp Forms: - Medication Reconciliation Form cp - Thank You Letter cp - Antibiotic Education cp - Prescription Opioid Use cp - Patient Portal Instructions cp - Leadership Thank You Letter cp Prescriptions: - Amoxicillin 875 mg Oral Tablet - take 1 tablet by ORAL route every 12 hours for 10 days; 20 tablet; Refills: 0, cp Product Selection Permitted - Diclofenac Sodium 75 mg Oral tablet,delayed release (DR/EC) - take 1 tablet by ORAL route 2 times per day; 20 tablet; Refills: 0, Product cp Selection Permitted Signatures: Adam Fernandes MD MD rn Page, Corey, PA PA cp Orlando Fine, RN RN as6
[2023-07-27] MEDS ORDERED: HYDROCODONE/APAP 5/325 MG TAB ONE (01:41)
[2023-07-27] MEDS ORDERED: IBUPROFEN 400 MG TAB ONE (01:41)
[2023-07-27] MEDS ORDERED: AMOX TR/K CLAV 400MG CHEW TAB PO ONE (01:41)
[2023-07-27 01:42] VITALS: BP 118/76; TEMP 99; O2SAT 100
== END 2023-07-27 01:37 | disposition home or self-care (01) ==
LOC: ER 00:57
DX: K08.89 Other specified disorders of teeth and supporting structures (principal); Z88.5 Allergy status to narcotic agent
CPT/HCPCS: 99283

== ENCOUNTER 2025-01-20 19:23 | Emergency (ER) | payer SELFPAY ==
--- OUTSIDE RECORDS SUMMARY | 2025-01-20 19:25 | XMS REPORT | Continuity of Care Document ---
Author Name Unknown Address [address] [place] [address] Address [address] [facility] [address] [place] [address] Care Team Providers Care Supervisor [employer] Name Role Phone Unavailable Unavailable Unavailable Encounters Start Date/Time End Date/Time Encounter Type Admission Type Attending Clinicians Care Facility Care Department Encounter ID Source 2022-03-14 10:26:04 Outpatient [facility] [id number] [facility] 2022-02-08 09:52:03 Outpatient [facility] [id number] 2 [facility]
[2025-01-20 20:29] LABS: Absolute Basophils 0.1 K/uL (0-0.5); Absolute Eosinophils 0.4 K/uL (0-0.5); Absolute Lymphocytes (CBC) 2.4 K/uL (0.7-4.9); Absolute Monocytes 0.6 K/uL (0.1-1.3); Absolute Neutrophil 4.2 K/uL (1.8-8.0); Basophils % 1.2 % (0-1.3); Eosinophils % 5.5 % (0-4.4); Hematocrit 46.6 % (39.6-49.0); Lymphocytes % 31.4 % (15.3-44.8); MCH 31.8 pg (27.0-35.0); MCHC 34.2 g/dL (32.0-36.0); MCV 92.8 fL (80-100); MPV 8.3 fL (7.6-11.3); Monocytes % 7.6 % (3.3-12.3); Neutrophils % 54.3 % (41.7-73.7); Nucleated Red Blood Cells % 0.1 % (0-0); Platelets 275 thou/uL (152-406); RBC Red Blood Cell Count 5.03 M/uL (4.33-5.43); Red Cell Distribution Width 12.8 % (12.1-15.2)
[2025-01-20] MEDS ORDERED: ONDANSETRON 4 MG/2 ML VIAL ONE (20:37)
[2025-01-20] MEDS ORDERED: CIPROFLOXACIN 400mg IV 0 MG/0 ML BAG IV ONE (20:38)
[2025-01-20] MEDS ORDERED: MORPHINE 4 MG/ML SYR ONE (20:38)
[2025-01-20] MEDS ORDERED: METRONIDAZOLE 500mg IVPB 500 MG/100 ML BAG IV ONE (20:38)
[2025-01-20] MEDS ORDERED: NA CHLORIDE 0.9% 1,000 ML ONE (20:38)
[2025-01-20 20:50] LABS: Specific Gravity 1.007 (1.005-1.030); Urine Bilirubin NEGATIVE (Negative); Urine Blood Negative (Negative); Urine Clarity Clear (Clear); Urine Color Colorless (Yellow); Urine Glucose NEGATIVE (Negative); Urine Ketones NEGATIVE (Negative); Urine Microscopic Reflex YN NO UMIC; Urine Nitrite NEGATIVE (Negative); Urine Protein NEGATIVE (Negative); Urine Urobilinogen Normal (Normal); Urine pH 6.5 (5.0-7.0)
[2025-01-20 20:50] LABS: Albumin 3.9 g/dL (3.4-5.0); Albumin/Globulin Ratio 1.1 (1.1-1.8); Anion Gap 8.8 mEq/L (5.0-15.0); Bilirubin Total 0.3 mg/dL (0.2-1.0); Globulin 3.5 g/dL (2.3-3.5); Potassium 3.8 mEq/L (3.5-5.1); Protein, Total 7.4 g/dL (6.4-8.2)
--- NOTE | 2025-01-20 20:57 | RAD REPORT ---
EXAMINATION: CT ABDOMEN AND PELVIS WITH CONTRAST CLINICAL INDICATION: Abdominal pain TECHNIQUE: CT abdomen and pelvis was performed, after the administration of 100 cc Isovue-300.. Sagit tl and coronal reconstructions were obtained. One or more of the following dose reduction techniques were used: Automated exposure control, adjustment of the mA and kV according to patient si ze, and iterative reconstruction. Unless otherwise specified, incidental findings do not require dedicated imaging follow-up. [id number]. Oral contrast was not given which limits evaluation of bowel and appendix. COMPARISON: .2017 FINDINGS: Liver, spleen, pancreas, adrenals and kidneys appear unremarkable No evidence of diverticulitis. Appendectomy. : IMPRESSION: No acute abnormality displayed
--- NOTE | 2025-01-20 21:13 | ER ---
Nurse's Notes [facility] Name: Julius Barkley Age: 29 yrs Sex: Male : 1995 Arrival Date: 01/20/2025 Time: 19:23 Bed 9 Private MD: Diagnosis: Other hemorrhoids-EXTERNAL;Rectal abscess-EARLY Presentation: 01/20 19:50 Chief complaint: Rectal abscess x 2 days. Coronavirus screen: At this time, the client hb does not indicate any symptoms associated with coronavirus-19. Ebola Screen: No symptoms or risks identified at this time. Initial Sepsis Screen: Does the patient meet any 2 criteria? No. Patient's initial sepsis screen is negative. Does the patient have a suspected source of infection? No. Patient's initial sepsis screen is negative. Risk Assessment: Do you want to hurt yourself or someone else? Patient reports no desire to harm self or others. Onset of symptoms was January 19, 2025. 19:50 Method Of Arrival: Ambulatory hb 19:50 Acuity: JANIS 3 hb Historical: - Allergies: 19:51 Codeine; hb - Home Meds: 19:51 None [Active]; hb - PMHx: 19:51 ALOPECIA; dermatitis; GERD; hb - PSHx: 19:51 Appendectomy; hb - Immunization history:: Adult Immunizations up to date. - Infectious Disease History:: Denies. - Family history:: not pertinent. - Social history:: Smoking status: Patient denies any tobacco usage or history of. Screenin:00 [facility] ED Fall Risk Assessment (Adult) History of falling in the last 3 months, me1 including since admission No falls in past 3 months (0 pts) Confusion or Disorientation No (0 pts) Intoxicated or Sedated No (0 pts) Impaired Gait No (0 pts) Mobility Assist Device Used No (0 pt) Altered Elimination No (0 pt) Score/Fall Risk Level 0 - 2 = Low Risk Maintained a safe environment, Provided non-skid footwear, Hourly rounding (assess needs \T\ fall precautionary measures) done. Abuse screen: Denies threats or abuse. Nutritional screening: No deficits noted. Tuberculosis screening: No symptoms or risk factors identified. Assessment: 20:00 General: Appears in no apparent distress. well groomed, well developed, well nourished, me1 Behavior is calm, cooperative, appropriate for age, Reports abscess near rectum that started this morning. Pain: Complains of pain in gluteal cleft Pain does not radiate. Pain currently is 5 out of 10 on a pain scale. Quality of pain is described as throbbing, Pain began this morning. Neuro: Level of Consciousness is awake, alert, obeys commands, Oriented to person, place, time, situation, Appropriate for age. Cardiovascular: Patient's skin is warm and dry. Respiratory: Airway is patent Respiratory effort is even, unlabored, Respiratory pattern is regular, symmetrical. GI: No signs and/or symptoms were reported involving the gastrointestinal system. : No signs and/or symptoms were reported regarding the genitourinary system. EENT: No signs and/or symptoms were reported regarding the EENT system. Derm: Skin is intact, is healthy with good turgor, Skin is pink, warm \T\ dry. Wound noted gluteal cleft Wound is red, warm and raised area. Musculoskeletal: No signs and/or symptoms reported regarding the musculoskeletal system. Vital Signs: 19:50 BP 120 / 82; Pulse 76; Resp 16; Temp 98.8(O); Pulse Ox 98% on R/A; Weight 102.06 kg; hb Height 5 ft. 10 in. ; Pain 1/10; 21:31 BP 118 / 89; Pulse 80; Resp 16; Temp 98.6; Pulse Ox 100% ; me1 19:50 Body Mass Index 32.28 (102.06 kg, 177.8 cm) hb 19:50 Pain Scale: Adult hb ED Course: 19:25 Patient arrived in ED. mr 19:27 Tong Veras MD is Attending Physician. dioin 19:35 Radiology exam delayed due to lab results not completed at this time. IV insertion jc4 attempt and/or patient not having appropriate IV at this time. 19:51 Triage completed. hb 20:00 No provider procedures requiring assistance completed. me1 20:00 Patient has correct armband on for positive identification. Bed in low position. Call pa1 light in reach. Side rails up X 1. Provided Education on: POC. Verbalized understanding.. Client placed on continuous cardiac and pulse oximetry monitoring. NIBP monitoring applied. Pulse ox on. NIBP on. 20:12 Andria Weeks FNP-C is PHCP. kb 20:14 Lara Foster, RN is Primary Nurse. me1 20:43 CT Abd/Pelvis - IV Contrast Only In Process Unspecified. EDMS 20:44 Urinalysis w/ reflexes Sent. me1 20:44 Initial lab(s) drawn, by me, sent to lab. Urine collected: clean catch specimen, clear. me1 Inserted saline lock: 22 gauge in right antecubital area, using aseptic technique. 21:12 Devang Sanchez MD is Referral Physician. kb 21:37 IV discontinued, intact, bleeding controlled, No redness/swelling at site. Pressure me1 dressing applied. 21:38 Arm band placed on Patient placed in an exam room. me1 Administered Medications: 20:57 Drug: NS 0.9% IV 1000 ml IV at 1000 ml once; to be given as a bolus over 60 minutes me1 Route: IV; Rate: 1000 ml; Site: right antecubital; 21:38 Follow up: IV Status: Completed infusion me1 20:57 Drug: morphine IVP or IV 4 mg IVP once over 4 mins Route: IVP; Infused Over: 4 mins; me1 Site: right antecubital; 21:20 Follow up: Response: No adverse reaction; Pain is decreased me1 20:57 Drug: Ondansetron IVP 4 mg IVP once; over 2 minutes Route: IVP; Site: right antecubital;me1 21:20 Follow up: Response: No adverse reaction; Nausea is decreased me1 20:57 Drug: metroNIDAZOLE IVPB 500 mg 100 ml IVPB at 200 ml/hr once over 30 mins Volume: 100 me1 ml; Route: IVPB; Rate: 200 ml/hr; Infused Over: 30 mins; Site: right antecubital; 21:38 Follow up: Response: No adverse reaction; IV Status: Completed infusion me1 21:22 Not Given (verbal to give PO instead.): [id number] mg 200 ml IVPB once over 60 me1 mins 21:27 Drug: Ciprofloxacin PO 500 mg PO once Route: PO; me1 21:28 Follow up: Response: No adverse reaction me1 Medication: 20:00 VIS not applicable for this client. me1 Outcome: 21:12 Discharge ordered by . marilu 21:37 Discharged to home ambulatory, with family, me1 21:37 Condition: stable 21:37 Discharge instructions given to patient, family, Instructed on discharge instructions, follow up and referral plans. medication usage, Demonstrated understanding of instructions, follow-up care, medications, Prescriptions given X 4, 21:38 Patient left the ED. me1 Signatures: Dispatcher [employer] EDAndria Martinez, EUGENE-C EUGENE-Tong Deshpande MD MD cha Rivera, Cecy, Reg Reg mr Christal Johnston RN RN Lara Foster RN RN pa1 Robby Miller [email or web address]
--- NOTE | 2025-01-20 21:13 | EDPHYS ---
Physician Documentation [facility] Name: Julius Barkley Age: 29 yrs Sex: Male : 1995 Arrival Date: 01/20/2025 Time: 19:23 Bed 9 Private MD: ED Physician Tong Veras HPI: 01/20 19:46 This 29 yrs old Male presents to ER via Unassigned with complaints of Rectal dioni Abscess. 19:46 The patient presents to the emergency department with pain in the rectal area, that is dioni moderate. Onset: The symptoms/episode began/occurred 3 day(s) ago. Context: the patient has no known special context relating to the rectal area complaint(s). Modifying factors: The symptoms are alleviated by remaining still, The symptoms are aggravated by bowel movement, movement, sitting position. Associate signs and symptoms: The patient has no apparent associated signs or symptoms. The patient has not experienced similar symptoms in the past. Historical: - Allergies: 19:51 Codeine; hb - Home Meds: 19:51 None [Active]; hb - PMHx: 19:51 ALOPECIA; dermatitis; GERD; hb - PSHx: 19:51 Appendectomy; hb - Immunization history:: Adult Immunizations up to date. - Infectious Disease History:: Denies. - Family history:: not pertinent. - Social history:: Smoking status: Patient denies any tobacco usage or history of. ROS: 19:47 Constitutional: Negative for fever, chills, and weight loss, Eyes: Negative for injury, dioni pain, redness, and discharge, ENT: Negative for injury, pain, and discharge, Neck: Negative for injury, pain, and swelling, Cardiovascular: Negative for chest pain, palpitations, and edema, Respiratory: Negative for shortness of breath, cough, wheezing, and pleuritic chest pain, Back: Negative for injury and pain, : Negative for injury, bleeding, discharge, and swelling, MS/Extremity: Negative for injury and deformity, Skin: Negative for injury, rash, and discoloration, Neuro: Negative for headache, weakness, numbness, tingling, and seizure, Psych: Negative for depression, anxiety, suicide ideation, homicidal ideation, and hallucinations, Allergy/Immunology: Negative for hives, rash, and allergies, Endocrine: Negative for neck swelling, polydipsia, polyuria, polyphagia, and marked weight changes, Hematologic/Lymphatic: Negative for swollen nodes, abnormal bleeding, and unusual bruising, 19:47 Abdomen/GI: Positive for rectal pain, of the , Exam: 19:47 Constitutional: This is a well developed, well nourished patient who is awake, alert, dioni and in no acute distress. Head/Face: Normocephalic, atraumatic. Eyes: Pupils equal round and reactive to light, extra-ocular motions intact. Lids and lashes normal. Conjunctiva and sclera are non-icteric and not injected. Cornea within normal limits. Periorbital areas with no swelling, redness, or edema. ENT: Nares patent. No nasal discharge, no septal abnormalities noted. Tympanic membranes are normal and external auditory canals are clear. Oropharynx with no redness, swelling, or masses, exudates, or evidence of obstruction, uvula midline. Mucous membranes moist. Neck: Trachea midline, no thyromegaly or masses palpated, and no cervical lymphadenopathy. Supple, full range of motion without nuchal rigidity, or vertebral point tenderness. No Meningismus. Chest/axilla: Normal chest wall appearance and motion. Nontender with no deformity. No lesions are appreciated. Cardiovascular: Regular rate and rhythm with a normal S1 and S2. No gallops, murmurs, or rubs. Normal PMI, no JVD. No pulse deficits. Respiratory: Lungs have equal breath sounds bilaterally, clear to auscultation and percussion. No rales, rhonchi or wheezes noted. No increased work of breathing, no retractions or nasal flaring. Back: No spinal tenderness. No costovertebral tenderness. Full range of motion. Male : Normal genitalia with no discharge or lesions. Skin: Warm, dry with normal turgor. Normal color with no rashes, no lesions, and no evidence of cellulitis. MS/ Extremity: Pulses equal, no cyanosis. Neurovascular intact. Full, normal range of motion., bilateral aka Neuro: Awake and alert, GCS 15, oriented to person, place, time, and situation. Cranial nerves II-XII grossly intact. Motor strength 5/5 in all extremities. Sensory grossly intact. Cerebellar exam normal. Normal gait. Psych: Awake, alert, with orientation to person, place and time. Behavior, mood, and affect are within normal limits. 19:47 Abdomen/GI: Inspection: abdomen appears normal, Bowel sounds: normal, Palpation: abdomen is soft and non-tender, Rectal exam: hemorrhoid(s), external, swelling, that is mild, tenderness, that is moderate, NONE, Liver: no appreciated palpable abnormalities, Hernia: not appreciated, Vital Signs: 19:50 BP 120 / 82; Pulse 76; Resp 16; Temp 98.8(O); Pulse Ox 98% on R/A; Weight 102.06 kg; hb Height 5 ft. 10 in. ; Pain /; 21:31 BP 118 / 89; Pulse 80; Resp 16; Temp 98.6; Pulse Ox 100% ; me1 19:50 Body Mass Index 32.28 (102.06 kg, 177.8 cm) hb 19:50 Pain Scale: Adult hb MDM: 19:27 Medical Screening Exam initiated dioni 21:11 Differential diagnosis: hemorrhoids, fissure, abscess. Data reviewed: vital signs, kb nurses notes. Counseling: I had a detailed discussion with the patient and/or guardian regarding the historical points, exam findings, and any diagnostic results supporting the discharge/admit diagnosis, lab results, radiology results, the need for outpatient follow up, a family practitioner, to return to the emergency department if symptoms worsen or persist or if there are any questions or concerns that arise at home. 01/20 19:33 Order name: CBC with Diff; Complete Time: 20:42 [facility] 01/20 19:33 Order name: Comprehensive Metabolic Panel; Complete Time: 20:51 [facility] 01/20 19:33 Order name: Urinalysis w/ reflexes; Complete Time: 20:51 [facility] 01/20 19:33 Order name: CT Abd/Pelvis - IV Contrast Only; Complete Time: 21:11 [facility] Administered Medications: 20:57 Drug: NS 0.9% IV 1000 ml IV at 1000 ml once; to be given as a bolus over 60 minutes me1 Route: IV; Rate: 1000 ml; Site: right antecubital; 21:38 Follow up: IV Status: Completed infusion me1 20:57 Drug: morphine IVP or IV 4 mg IVP once over 4 mins Route: IVP; Infused Over: 4 mins; me1 Site: right antecubital; 21:20 Follow up: Response: No adverse reaction; Pain is decreased me1 20:57 Drug: Ondansetron IVP 4 mg IVP once; over 2 minutes Route: IVP; Site: right antecubital;me1 21:20 Follow up: Response: No adverse reaction; Nausea is decreased me1 20:57 Drug: metroNIDAZOLE IVPB 500 mg 100 ml IVPB at 200 ml/hr once over 30 mins Volume: 100 me1 ml; Route: IVPB; Rate: 200 ml/hr; Infused Over: 30 mins; Site: right antecubital; 21:38 Follow up: Response: No adverse reaction; IV Status: Completed infusion me1 21:22 Not Given (verbal to give PO instead.): [id number] mg 200 ml IVPB once over 60 me1 mins 21:27 Drug: Ciprofloxacin PO 500 mg PO once Route: PO; me1 21:28 Follow up: Response: No adverse reaction me1 Disposition Summary: 01/20/25 21:12 Discharge Ordered Notes: Location: Home kb Problem: new kb Symptoms: have improved kb Condition: Stable kb Diagnosis - Other hemorrhoids - EXTERNAL kb - Rectal abscess - EARLY kb Followup: dioni - With: Private Physician - When: 2 - 3 days - Reason: Recheck today's complaints, Continuance of care, Re-evaluation by your physician Followup: dioni - With: Devang Sanchez MD - When: 2 - 3 days - Reason: Recheck today's complaints, Re-evaluation by your physician Discharge Instructions: - Discharge Summary Sheet dioni - High-Fiber Eating Plan dioni - Hemorrhoids dioni - Anorectal Abscess dioni - How to Take a Sitz Bath dioni - Hemorrhoids, [id number] Forms: - Medication Reconciliation Form kb - Antibiotic Education kb - Prescription Opioid Use kb - Patient Portal Instructions kb - Leadership Thank You Letter Prescriptions: - Colace 100 mg Oral Tablet - take 1 tablet ORAL route every 12 hours; 14 tablet; Refills: 0, Product dioni Selection Permitted - Flagyl 500 mg Oral tablet - take 1 tablet ORAL route every 6 hours for 7 days; 28 tablet; Refills: 0, dioni Product Selection Permitted - Cipro 500 mg Oral Tablet - take 1 tablet ORAL route every 12 hours for 7 days; 14 tablet; Refills: 0, dioni Product Selection Permitted - Diclofenac Sodium 75 mg Oral tablet, delayed release (enteric coated) - take 1 tablet ORAL route 2 times per day; 20 tablet; Refills: 0, Product dioni Selection Permitted Signatures: Dispatcher [employer] Andria Elkins, TUNNELING MACHINE OPERATOR-C TUNNELING MACHINE OPERATOR-Tong Deshpande MD MD cha Baxter, Heather, RN RN Lara Foster RN RN me1
[2025-01-20] MEDS ORDERED: CIPROFLOXACIN HCL 500 MG TAB ONE (21:25)
[2025-01-20 22:04] VITALS: BP 118/89; TEMP 98.6; O2SAT 100
== END 2025-01-20 21:38 | disposition home or self-care (01) ==
LOC: ER 19:23
DX: K64.8 Other hemorrhoids (principal); K61.1 Rectal abscess
CPT/HCPCS: 36415; 74177; 80053; 81003; 82565; 85025; 96365; 96375; 99284; J0744; J2405; J7030; Q9967